=== PATIENT | male | born 1990 | race Caucasian/White ===

== ENCOUNTER 2025-03-13 20:28 | Emergency (ER) | payer OTHER, SELFPAY ==
--- OUTSIDE RECORDS SUMMARY | 2025-02-18 17:00 | XMS_ITS | Encounter Summary ---
Author Organization [facility] Address [address] [place] [address] Care Team Providers Care Jumpbasting Lining Baster Name Role Phone Mesfin Grace M.D. Primary Care Provider [phone] Reason for Referral * Outpatient (Routine) - Authorized Specialty Diagnoses / Procedures Referred By Cristobal beach Referred To Contact Family Medicine Diagnoses Concern Dermatologic Amy Andrews APRN, C.N.P. [address] [place] [address] Phone: tel: fax: [facility] Region Referral ID Status Reason Start Date Expiration Date V isits Requested Visits Authorized [id number] Authorized 02/18/2025 08/20/2026 1 1 Reason for Visit * Reason Comments Sore Sores on the scalp t hat are painful and causing hair lose x 2 years - getting worse and seems to be spreading * Appointment Request (Routine) - Closed Specialty Diagnoses / Procedures Referred By Cristobal beach Referred To Contact Family Medicine Referral ID Status Reason Start Date Expiration Date Visits Re quested Visits Authorized [id number] Closed 02/17/2025 05/20/2026 1 1 Encounter Details Date Type Department Care Team (Latest Contact Info) Description 02/18/2025 5:00 PM CDT Comprehensive Visit Department of Family Medicine, [facility], in [place], [place] [address] [address] Amy Andrews APRN, C.N.P. [address] [phone] Concern Dermatologic (Primary Dx) Social History Tobacco Use Types Packs/Day Years Used Date Smoking Tobacco: Former Cigarettes Smokeless Tobacco: Never Sex and Gender Information Value Date Recorded Sex Assigned at Not on file Legal Sex Male 8:43 AM CDT Gender Identity Not on file Sexual Orientation Not on file documented as of this encounter Last Filed Vital Signs Vital Sign Reading Time Taken Comments Blood Pressure 114/74 02/18/2025 4:45 PM CDT Pulse 81 02/18/2025 4:45 PM CDT Temperature 37.3 C (99.2 F) 02/18/2025 4:45 PM CDT Respiratory Rate 16 02/18/2025 4:45 PM CDT Oxygen Saturation - - Inhaled Oxygen Concentration - - Weight 91.4 kg (201 lb 8 oz) 02/18/2025 4:45 PM CDT Height - - Body Mass Index - - documented in this encounter Progress Notes * Amy Andrews, MARA, C.N.P. - 02/18/2025 5:00 PM CDT Images from the original note were not included. PRIMARY CARE TODAY/SAME DAY CLINIC DATE OF VISIT: 02/18/2025 SUBJECTIVE CHIEF COMPLAINT / REASON FOR VISIT Eduardo Conde is a 34 y.o. male who presents for evaluation of Sore (Sores on the scalp that are painful and causing hair lose x 2 years - getting worse and seems to be spreading ). The patient verbally consented to an audio recording of their visit to assist with the completion of documentation. History of Present Illness Eduardo Conde is a 34 year old male who presents with recurrent scalp lesions and hair loss. He has been experiencing breakouts on his scalp for approximately four years. Initially, the condition resolved for about three years but recurred last year and has progressively worsened. The lesions are described as painful and itchy 'little pimples', some of which have become infected, leading to patchy hair loss on his scalp. He has attempted various shampoos, including dandruff treatments like Head & Shoulders, withoutrelief. OBJECTIVE VITAL SIGNS BP 114/74 (BP Location: Right arm, Patient Position: Sitting, Cuff Size: Large) Pulse 81 Temp 37.3 ??C (Temporal) Resp 16 Wt 91.4 kg Physical Exam Vitals and nursing note reviewed. Constitutional Appearance: Normal appearance. Cardiovascular Pulses: Normal pulses. Pulmonary Effort: Pulmonary effort is normal. Skin General: Skin is warm. Findings: Rash present. Rash is macular and papular. Neurological Mental Status: He is alert and oriented to person, place, and time. ASSESSMENT / PLAN #1 Concern Dermatologic Chronic scalp lesions with recurrence over the past year, presenting as painful, pruritic pustules on the scalp with associated alopecia. The condition is suspected to be fungal due to its persistence and recurrence pattern, which is atypical for bacterial infections. The lesions are tender and pustular, indicating possible infection or inflammation of the hair follicles. Questionable for folliculitis as well, though timeline isn't overly supportive. The decision to treat as a fungal infection is based on the chronicity and recurrence, characteristic of fungal rather than bacterial infections. - Prescribe ketoconazole shampoo for daily use for two weeks, leaving it on for 5-10 minutes beforerinsing. After two weeks, use as needed once weekly if symptoms persist. - Prescribe fluconazole two-step tablet regimen: take one tablet today and another in three days - Refer to dermatology for further evaluation if symptoms do not improve with the current treatmentplan. Schedule an appointment with the dermatology AUTOMATIC BLOCKER for follow-up care. Assessment & Plan PATIENT EDUCATION: Ready to learn, no apparent learning barriers were identified; learning preferences include listening. A comprehensive discussion was held with the patient to review the diagnosis and treatment plan.Explained diagnosis and treatment plan; patient expressed understanding of the content, discussed at length. All questions answered. Amy Andrews APRN, C.N.P. documented in this encounter Plan of Treatment Scheduled Referrals Name Type Priority Associated Diagnoses Orde r Schedule Family Medicine - Dermatology consult (clinic) Outpatient Referral Routine Concern Dermatologic Expected: 02/18/2025, Expires: 05/21/2026 documented as of this encounter Visit Diagnoses Diagnosis Concern Dermatologic- Primary documented in this encounter Care Teams Jumpbasting Lining Baster Relationship Specialty Start Date End Date Mesfin Grace M.D. [address] [place] [address] PCP - General Family Medicine 02/18/25 documented as of this encounter
[2025-03-13 20:33] VITALS: BP 147/90; PULSE 104; RESP 18; TEMP 37.2; O2SAT 98; BMI 28.9
--- NOTE | 2025-03-13 20:39 | ED.WOUNDLAC ---
HPI - Wound/Laceration General Time Seen by Provider: 20:39 <Gertrudis Buitrago MD - Last Filed: 03/14/25 00:21> Date Seen: 03/13/25 <Gertrudis Buitrago MD - Last Filed: 03/14/25 00:21> Chief Complaint: Laceration/Wound <Gertrudis Buitrago MD - Last Filed: 03/14/25 00:21> Stated Complaint: Left facial laceration <Gertrudis Buitrago MD - Last Filed: 03/14/25 00:21> Time Seen by Provider: 03/13/25 20:39 <Gertrudis Buitrago MD - Last Filed: 03/14/25 00:21> Source: patient <Gertrudis Buitrago MD - Last Filed: 03/14/25 00:21> Mode of arrival: ambulatory <Gertrudis Buitrago MD - Last Filed: 03/14/25 00:21> Limitations: no limitations <Gertrudis Buitrago MD - Last Filed: 03/14/25 00:21> History of Present Illness HPI narrative: Eduardo is a 34-year-old male previously healthy not currently on any medications who comes to the emergency room with significant other for evaluation regarding left christianity trauma and laceration. Eduardo was simply [place] kids near the train tracks when he fell striking the left christianity on 1 of the corners of the exposed beams. He did not lose consciousness and was able to get up right away. He denies visual changes at this time, nausea vomiting. He states he took a shower right away. No numbness or tingling of the arms. He denies any neck pain. <Gertrudis Buitrago MD - Last Filed: 03/14/25 00:21> Related Data Home Medications: Home Medications ?Medication ?Instructions ?Recorded ?Confirmed No Known Home Medications 03/13/25 03/13/25 <Gertrudis Buitrago MD - Last Filed: 03/14/25 00:21> Allergies/Adverse Reactions: Allergies Allergy/AdvReac Type Severity Reaction Status Date / Time No Known Drug Allergies Allergy Verified 03/13/25 20:33 <Gertrudis Buitrago MD - Last Filed: 03/14/25 00:21> Review of Systems Status of ROS: Reports: 10 or more systems reviewed and unremarkable except as noted in History and below <Gertrudis Buitrago MD - Last Filed: 03/14/25 00:21> Eyes: Denies: change in vision <Gertrudis Buitrago MD - Last Filed: 03/14/25 00:21> ENMT: Denies: neck pain <Gertrudis Buitrago MD - Last Filed: 03/14/25 00:21> Cardio: Denies: chest pain <Gertrudis Buitrago MD - Last Filed: 03/14/25 00:21> Resp: Denies: cough <Gertrudis Buitrago MD - Last Filed: 03/14/25 00:21> GI: Denies: vomiting <Gertrudis Buitrago MD - Last Filed: 03/14/25 00:21> Musculo: Denies: neck pain <Gertrudis Buitrago MD - Last Filed: 03/14/25 00:21> Integ/Breast: Reports: skin pain <Gertrudis Buitrago MD - Last Filed: 03/14/25 00:21> Neuro: Denies: headache, numbness in extremities, weakness in extremities, lack of coordination or dizziness <Gertrudis Buitrago MD - Last Filed: 03/14/25 00:21> PFSH PFSH Social History: Social History Non-prescribed substance use: denies use <Gertrudis Buitrago MD - Last Filed: 03/14/25 00:21> Exam Narrative: Exam Narrative: Patient is very quiet. Makes good eye contact and follows command. GCS of 15. Airway is open, breathing easy, there is some mild lose type bleeding from a laceration on the left christianity. EOM is full and pupils are equal round and reactive. Patient is noted to have a Y-shaped laceration vertical with arms superior the body of the laceration measures approximately 1.7 cm Each arm extends approximately 1 cm off the superior aspect of the main wound. This compromises epidermis dermis and subcutaneous tissue. Patient is able to raise eyebrows without difficulty. He is able to smile without difficulty. No cervical midline tenderness. Range of motion is full and rotation does not yield any discomfort. No respiratory distress. He is moving all extremities. <Gertrudis Buitrago MD - Last Filed: 03/14/25 00:21> Const: Vital Signs, click to edit/add: Vital Signs - 24 hr 03/13/25 20:33 Temperature 99.0 F Pulse Rate [Right Pulse Oximeter] 104 H Respiratory Rate 18 Blood Pressure [Ri ght Upper Arm] 147/90 H Pulse Oximetry 98 <Gertrudis Buitrago MD - Last Filed: 03/14/25 00:21> Vital Signs, click to edit/add: Vital Signs - 24 hr 03/13/25 20:33 Temperature 99.0 F Pulse Rate [Right Pulse Oximeter] 104 H Respiratory Rate 18 Blood Pressure [Ri ght Upper Arm] 147/90 H Pulse Oximetry 98 <Sneha Tillman MD - Last Filed: 03/13/25 21:59> Documenting provider has reviewed patient's vital signs: yes <Gertrudis Buitrago MD - Last Filed: 03/14/25 00:21> Course Course ED Course: At this time patient is presenting with laceration over the left christianity. It is quite extensive and does involve subcutaneous layers. My concern is the possibility of an underlying skull fracture as this is course the week is area of the skull. Certainly he did not have any loss of consciousness but what I am seeing shows significant injury. I do recommend CT of the head. I do not think we need to do CT of the cervical spine given the exam here today and the fact that Eduardo is not under the influence of anything per his report. <Gertrudis Buitrago MD - Last Filed: 03/14/25 00:21> Reevaluation(s) Reevaluation #1: Given volume in the ED my colleague Dr. Tillman has kindly taken over the care of this patient for sewing of the laceration. Please see her note. <Gertrudis Buitrago MD - Last Filed: 03/14/25 00:21> Vital Signs Vital signs: Initial Vital Signs Temperature 99.0 F 03/13/25 20:33 Temperature Source Temporal Artery Scan 03/13/25 20:33 Pulse Rate 104 H 03/13/25 20:33 Respiratory Rate 18 03/13/25 20:33 Blood Pressure 147/90 H 03/13/25 20:33 Blood Pressure Mean 109 H 03/13/25 20:33 Blood Pressure Position Sitting 03/13/25 20:33 Pulse Oximetry 98 03/13/25 20:33 Vital Signs Temperature 99.0 F 03/13/25 20:33 Pulse Rate 104 H 03/13/25 20:33 Respiratory Rate 18 03/13/25 20:33 Blood Pressure 147/90 H 03/13/25 20:33 Pulse Oximetry 98 03/13/25 20:33 Temperature 99.0 F 03/13/25 20:33 Pulse Rate 104 H 03/13/25 20:33 Respiratory Rate 18 03/13/25 20:33 Blood Pressure 147/90 H 03/13/25 20:33 Pulse Oximetry 98 03/13/25 20:33 <Gertrudis Buitrago MD - Last Filed: 03/14/25 00:21> Initial Vital Signs Temperature 99.0 F 03/13/25 20:33 Temperature Source Temporal Artery Scan 03/13/25 20:33 Pulse Rate 104 H 03/13/25 20:33 Respiratory Rate 18 03/13/25 20:33 Blood Pressure 147/90 H 03/13/25 20:33 Blood Pressure Mean 109 H 03/13/25 20:33 Blood Pressure Position Sitting 03/13/25 20:33 Pulse Oximetry 98 03/13/25 20:33 Vital Signs Temperature 99.0 F 03/13/25 20:33 Pulse Rate 104 H 03/13/25 20:33 Respiratory Rate 18 03/13/25 20:33 Blood Pressure 147/90 H 03/13/25 20:33 Pulse Oximetry 98 03/13/25 20:33 Temperature 99.0 F 03/13/25 20:33 Pulse Rate 104 H 03/13/25 20:33 Respiratory Rate 18 03/13/25 20:33 Blood Pressure 147/90 H 03/13/25 20:33 Pulse Oximetry 98 03/13/25 20:33 <Sneha Tillman MD - Last Filed: 03/13/25 21:59> Medications Administered Medications: Discontinued Medications Generic Name Dose Route Start Last Admin Trade Name Freq PRN Reason Stop Dose Admin Lidocaine/Epinephrine 20 ml 03/13/25 20:44 03/13/25 20:56 Lidocaine 1%-Epi 1:100,000 INFILTRATI 03/13/25 20:45 20 ml ONCE ONE Administration Lidocaine/Epinephrine/Tetracaine 3 ml 03/13/25 20:44 03/13/25 20:56 Lidocaine/Epinep/Tetracaine 3 Ml Gel..Ml. TOPICAL 03/13/25 20:45 3 ml ONCE ONE Administration <Gertrudis Buitrago MD - Last Filed: 03/14/25 00:21> Discontinued Medications Generic Name Dose Route Start Last Admin Trade Name Soham PRN Reason Stop Dose Admin Lidocaine/Epinephrine 20 ml 03/13/25 20:44 03/13/25 20:56 Lidocaine 1%-Epi 1:100,000 INFILTRATI 03/13/25 20:45 20 ml ONCE ONE Administration Lidocaine/Epinephrine/Tetracaine 3 ml 03/13/25 20:44 03/13/25 20:56 Lidocaine/Epinep/Tetracaine 3 Ml Gel..Ml. TOPICAL 03/13/25 20:45 3 ml ONCE ONE Administration <Sneha Tillman MD - Last Filed: 03/13/25 21:59> MDM - Wound/Laceration MDM Narrative Medical decision making narrative: 1. Head laceration-repair by my colleague. Given the location and depth and severity of the laceration we did go ahead and discuss CT of the head which fortunately did not show any evidence of underlying hemorrhage or skull fracture. Patient is instructed to use Keflex 500 mg p.o. b.i.d. for 7 days for wound prophylaxis. Ibuprofen or Tylenol may be used for discomfort. Suture removal in 5-7 days time. 2. Disposition -home at this time return for worsening symptoms such as confusion, vomiting, altered mental status, infection and as needed. <Gertrudis Buitrago MD - Last Filed: 03/14/25 00:21> Imaging Data CT scan - head: Attestation: I have reviewed the pertinent imaging results. <Gertrudis Buitrago MD - Last Filed: 03/14/25 00:21> My impression: I do not note any skull fracture, epidural hematoma, acute finding. <Gertrudis Buitrago MD - Last Filed: 03/14/25 00:21> Radiologist's impression: No acute intracranial hemorrhage. No CT evidence of acute territorial infarct. No hydrocephalus or midline shift. Normal cerebral parenchymal volume. Paranasal sinuses and mastoid air cells are well ventilated. No acute calvarial fracture. IMPRESSION: No acute intracranial abnormality. <Gertrudis Buitrago MD - Last Filed: 03/14/25 00:21> Discharge Plan Discharge Clinical Impression: Laceration <Gertrudis Buitrago MD - Last Filed: 03/14/25 00:21> Patient Disposition: Home, Self-Care <Gertrudis Buitrago MD - Last Filed: 03/14/25 00:21> Condition: Improved <Gertrudis Buitrago MD - Last Filed: 03/14/25 00:21> Additional Instructions: Suture removal in 5-7 days. Ibuprofen or Tylenol as needed for discomfort. Ice to area if needed. Suggest antibiotic Keflex for prevention of infection. This is available through our simplifyMD machine. Seek medical attention for vomiting, confusion, worsening symptoms and as needed. <Gertrudis Buitrago MD - Last Filed: 03/14/25 00:21> Prescriptions: No Action No Known Home Medications <Gertrudis Buitrago MD - Last Filed: 03/14/25 00:21> Follow Up/Referrals: Provider,Not a Local [Primary Care Provider, Family Practice] <Gertrudis Buitrago MD - Last Filed: 03/14/25 00:21> Stand Alone Forms: [facility] Info Instructions <Gertrudis Buitrago MD - Last Filed: 03/14/25 00:21> Procedures Laceration Laceration 1: Pre procedure diagnosis: Laceration <Sneha Tillman MD - Last Filed: 03/13/25 21:59> Post procedure diagnosis: Laceration <Sneha Tillman MD - Last Filed: 03/13/25 21:59> Site marking: not applicable <Sneha Tillman MD - Last Filed: 03/13/25 21:59> Verification/time out: correct patient <Sneha Tillman MD - Last Filed: 03/13/25 21:59> Name of person performing procedure: Sneha Tillman <Sneha Tillman MD - Last Filed: 03/13/25 21:59> Site: face (Oriental Orthodox) <Sneha Tillman MD - Last Filed: 03/13/25 21:59> Size (cm): 1.5 <Sneha Tillman MD - Last Filed: 03/13/25 21:59> Description: stellate <Sneha Tillman MD - Last Filed: 03/13/25 21:59> Local Anesthetic: lidocaine 1% and with epi <Sneha Tillman MD - Last Filed: 03/13/25 21:59> Amount of anesthesia used (mL): 2.0 <Sneha Tillman MD - Last Filed: 03/13/25 21:59> Pre-repair: wound explored and irrigated extensively <Sneha Tillman MD - Last Filed: 03/13/25 21:59> Skin layer closed with: other (Ethilon) <Sneha Tillman MD - Last Filed: 03/13/25 21:59> Size (cm): 5-0 <Sneha Tillman MD - Last Filed: 03/13/25 21:59> Number of sutures: 7 <Sneha Tillman MD - Last Filed: 03/13/25 21:59> Technique: simple, interrupted <Sneha Tillman MD - Last Filed: 03/13/25 21:59> Subcutaneous layer closed with: Vicryl <Sneha Tillman MD - Last Filed: 03/13/25 21:59> Size: 5-0 <Sneha Tillman MD - Last Filed: 03/13/25 21:59> Number of sutures: 3 <Sneha Tillman MD - Last Filed: 03/13/25 21:59> Technique: simple, interrupted <Sneha Tillman MD - Last Filed: 03/13/25 21:59> Conclusion: patient tolerated procedure <Sneha Tillman MD - Last Filed: 03/13/25 21:59>
--- NOTE | 2025-03-13 20:44 | CRLHL7_ITS ---
For Patients: As a result of the Century Cures Act, medical imaging exams and procedure reports are released immediately into your electronic medical record. You may view this report before your referring provider. If you have questions, please contact your health care provider. INDICATION: Trauma. TECHNIQUE: CT head without contrast. COMPARISON: None. FINDINGS: No acute intracranial hemorrhage. No CT evidence of acute territorial infarct. No hydrocephalus or midline shift. Normal cerebral parenchymal volume. Paranasal sinuses and mastoid air cells are well ventilated. No acute calvarial fracture. IMPRESSION: No acute intracranial abnormality. Please note that all CT scans at this facility use dose modulation, iterative reconstruction, and/or weight-based dosing when appropriate to reduce radiation dose to as low as reasonably achievable. Dictated by Saleem Watson MD @ 03/13/2025 9:10:56 PM (Electronically Signed)
[2025-03-13] MEDS: LIDOCAINE/EPINEP/TETRACAINE 3 ML GEL..ML. TOPICAL (20:56)
[2025-03-13] MEDS: LIDOCAINE 1%-EPI 1:100,000 20 ML INFILTRATI (20:56)
--- OUTSIDE RECORDS SUMMARY | 2025-03-13 21:11 | XMS_ITS | Clinical Summary ---
Author Organization [facility] Address [address] [place] [address] Care Team Providers Care Astro Technician Name Role Phone Quincy Batista Primary Care Provider [phone] Allergies No known active allergies Medications naproxen (NAPROSYN) 500 mg tabletIndication s:Acute pain of left shoulder Take 1 Tablet (500 mg) by mouth two times daily. 60 Tablet 10/05/2022 Active Active Problems Problem Noted Date Diagnosed Date Paronychia of great toe, right 01/31/2015 Tobacco use disorder 04/22/2005 Resolved Problems Problem Noted Date Diagnosed Date Resolved Date PHARYNGITIS, ACUTE 05/07/2003 05 5 Immunizations Immunization Administration Dates Next Due DTP 04/09/1996,05/26/1993,07/12/1992 Hepatitis B (Peds) 05/30/2007,03/10/2003 MMR 03/10/2003,07/12/1992 Oral Polio Vaccine 04/02/1997,04/09/1996, 993,07/12/1992 Td (Age >=7 Years) 03/10/2003 Social History Tobacco Use Types Packs/Day Years Used Date Smoking Tobacco: Every Day Cigarettes Smokeless Tobacco: Never Tobacco Cessation:Ready to Q uit: Not Asked; Counseling Given: Not Answered Comments:Smoking History Packs/day: Pamphlets given Trying to quit Alcohol Use Standard Drinks/Week Comments No 0 (1 standard drink = 0.6 oz pur e alcohol) Social Connections Answer Date Recorded Frequency of Communication with Friends and Fami ly 0 04/18/2023 Financial Resource Strain Answer Date R ecorded Difficulty of Paying Living Expenses 3 04/18/2023 Difficulty of Paying Living Expenses Not on file 04/18/2023 Food Insecurity Answer Date Recorded Worried About Running Out of Food in the Last Ye ar 1 04/18/2023 Transportation Needs Answer Date Record ed Lack of Transportation (Medical) 1 04/18/2023 Housing Stability Answer Date Recorded Unable to Pay for Housing in the Last Year 1 04/18/2023 Sex and Gender Information Value Date Recorded Sex Assigned at Not on file Legal Sex Male 5:19 AM PERIOPERATIVE TECH Gender Identity Not on file Sexual Orientation Not on file Obstetrics History Last Filed Vital Signs Vital Sign Reading Time Taken Comments Blood Pressure 132/86 04/18/2023 7:32 PM CDT Pulse 96 04/18/2023 7:32 PM CDT Temperature 36.9 C (98.5 F) 04/18/2023 7:32 PM CDT Respiratory Rate 16 04/18/2023 7:32 PM CDT Oxygen Saturation 99% 04/18/2023 7:32 PM CDT Inhaled Oxygen Concentration - - Weight 85.7 kg (189 lb) 04/18/2023 7:32 PM CDT Height 172.7 cm (5' 8) 10/05/2022 3:35 PM PERIOPERATIVE TECH Body Mass Index 28.74 10/05/2022 3:35 PM PERIOPERATIVE TECH Plan of Treatment Health Maintenance Due Date Last Done Comments Depression screening for age 12+ 2002 Hepatitis B series for 19+ ( 3 of 3 - 3-dose series) 07/25/2007 05/30/2007, 03/10/2003 Pneumococcal series for age 6-49 (1 of 2 - PCV) 2009 Tetanus booster 03/10/2013 03/10/2003 BMI (ht and wt on same day) for age 18+ 10/06/2023 0 10/05/2022 COVID-19 vaccine series ( season) 2024 Influenza Vaccine (#1) 2025 HIV for age 15-65 Completed 01/28/2023 Hepatitis C screening for age 18-79 Completed 01/28 Procedures Procedure Name Priority Date/Time Associated Diagnosis Comments LC HIV-1/O/2, 4TH GENERATION Routine 01/28/2023 9:14 AM CDT Encounter for screening examination for sexually transmitted disease LC HCV ANTIBODY RFX TO QUANT PCR Routine 01/28/2023 9:14 AM CDT Encounter for screening examination for sexually transmitted disease from Last 3 Months or Most Recently Relevant to Health Maintenance Results * LC HCV ANTIBODY RFX TO QUANT PCR (01/28/2023 9:14 AM CDT) HCV Ab Non Reactive Non Reactive 01/30/2023 1:09 PM CDT [facility] ([facility]) Blood BLOOD SPECIMEN / Unknown Venipuncture / Unknown 01/28/2023 9:14 AM CDT 01/28/2023 9:16 AM CDT Narrative [facility] ([facility]) - 01/30/2023 1:09 PM CDT Performed at: [address] [place] [id number] Planting Machine Operator: Peewee Cadena MD, Phone: [phone] [facility] Final Result [facility] ([facility]) [address] [place] [address], * LC HIV-1/O/2, 4TH GENERATION (01/28/2023 9:14 AM CDT) Pathologist [facility] HIV Scr 4th Gen Non Reactive Non Reactive 01/30/2023 2:08 PM CDT [facility] ([facility]) Comment: HIV Negative HIV-1/HIV-2 antibodies and HIV-1 p24 antigen were NOT detected. There is no laboratory evidence of HIV infection. Blood BLOOD SPECIMEN / Unknown Venipuncture / Unknown 01/28/2023 9:14 AM CDT 01/28/2023 9:16 AM CDT Narrative [facility] ([facility]) - 01/30/2023 2:08 PM CDT Performed at: [address] [place] [address] [address] [place], [place] [id number] Planting Machine Operator: Peewee Cadena MD, Phone: [phone] [facility] Final Result [facility] ([facility]) [address] [place] [address], from Last 3 Months or Most Recently Relevant to Health Maintenance Insurance [id number] [place] [id number] MEDICAID MED[place]ID [id number] [place] [id number] Care Teams Astro Technician Relationship Specialty Start Date End Date Quincy Batista PA [address] [facility] [place] [id number] PCP - General Physician Chaplain 06/09/24
--- OUTSIDE RECORDS SUMMARY | 2025-03-13 21:11 | XMS_ITS | Clinical Summary ---
Author Organization [facility] Address [address] [place] [address] Care Team Providers Care Emr Analyst Name Role Phone Mesfin Grace M.D. Primary Care Provider [phone] Source Comments Patient records contain information from all sites at [facility]. For routine questions regarding patient records, call [phone] during business hours, M-F 8:00 AM - 5:00 PM Central Time. Record requests for emergency care only can be directed to [phone] at any time.[facility] Allergies No known active allergies Medications ketoconazole (Nizoral) 2 % shampooIndication s:Concern Dermatologic Shampoo daily, leave on for 5-10 minutes, then rinse. 120 mL 5 Active fluconazole (Diflucan) 150 mg tabletIndications :Concern Dermatologic Take 1 tablet (150 mg total) by mouth See Admin Instructions. Take one tab now. Repeat in 7 days if symptoms persist. 2 tablet 5 Active Encounters Date Type Department Care Team Description 02/18/2025 5:00 PM CDT Comprehensive Visit Department of Family Medicine, [facility], in [place], [place] [address] [place] [address] Amy Andrews, MARA, C.N.P. Concern Dermatologic (Primary Dx) from Last 3 Months Social History Tobacco Use Types Packs/Day Years Used Date Smoking Tobacco: Former Cigarettes Smokeless Tobacco: Never Sex and Gender Information Value Date Recorded Sex Assigned at Not on file Legal Sex Male 8:43 AM CDT Gender Identity Not on file Sexual Orientation Not on file Last Filed Vital Signs Vital Sign Reading [...] - - Body Mass Index - - Plan of Treatment Health Maintenance Due Date Last Done Comments HIV Screening 1990 Hepatitis C Screening 1990 Tobacco Cessation counseling 1990 Hepatitis B Vaccines (3 of 3 - 3-dose series) 07/25/2007 05/30/2007, 03/10/2003 HPV Vaccines (1 - 3-dose SCDM series) 2017 COVID-19 Vaccine ( season) 2024 Depression Screening (Annual PHQ-2) 08/05/2024 Influenza Vaccine (#1) 2025 DTaP,Tdap,and Td Vaccines (6 - Td or Tdap) 02/10/2034 02/11/2024, 03/10/2003, 04/09/1996, Additional history exists IPV Vaccines Aged Out No longer eligi ble based on patient's age to complete this topic Pneumococcal vaccine (0-49 years) Aged Out No longer eligible based on patient's age to complete this topic Care Teams Emr Analyst Relationship Specialty Start Date End Date Mesfin Grace M.D. LEEANN: [phone] [address] [place] [id number] PCP - General Family Medicine 02/18/25
== END 2025-03-13 22:16 | disposition home or self-care (01) ==
PROVIDERS: Emergency Provider Family Medicine
DX: S01.01XA Laceration without foreign body of scalp, initial encounter (principal); W22.8XXA Striking against or struck by other objects, initial encounter
CPT/HCPCS: 12032; 70450; 80048; 81001; 85025; 99283; 99284